=== PATIENT | male | born 1975 | race American Indian/Alaskan Native ===

== ENCOUNTER 2018-01-18 12:20 | Outpatient (CLI) | payer BC ==
--- NOTE | 2018-01-18 15:41 | XRay Report ---
LEFT FOOT THREE VIEWS: 01/18/18 CLINICAL: Foot swelling. FINDINGS: No fracture or dislocation. Mild hallux valgus deformity and mild arthritis at the first MTP joint. No erosions. Moderate soft tissue swelling of the forefoot. No soft tissue air or foreign body. IMPRESSION: Nonspecific soft tissue edema. Mild arthritis at the first MTP joint but no specific signs of gout.
== END 2018-01-18 12:21 | disposition home or self-care (01) ==
LOC: SPVIMAG 12:20
PROVIDERS: ATTEND Internal Medicine
DX: M13.872 Other specified arthritis, left ankle and foot (principal); R60.9 Edema, unspecified